=== PATIENT | male | born 1955 | race African-American/Black ===

== ENCOUNTER 2019-10-19 15:41 | Observation (INO) ==
[2019-10-19] MEDS ORDERED: hydrALAZINE 20 MG/1 ML VIAL IV STA (16:25)
[2019-10-19 16:45] LABS: Basophils % 0.2 % (0.0-0.8); Hematocrit 43.3 VOL% (42.0-52.0); Hemoglobin 14.6 GM/DL (14.0-18.0); Immature Granulocytes % 0.4 %; Immature Granulocytes Absolute 0.06 #; Lymphocytes # 0.9 10*3/uL (1.4-4.0); Lymphocytes % 5.3 % (21.2-54.2); Mean Corpuscular HGB Conc 33.7 GM/DL (32-36); Mean Corpuscular Volume 90.4 FL (87-102); Mean Platelet Volume 10.3 FL (9.6-12.0); Monocytes % 5.5 % (1.7-12.7); Neutrophils % 88.6 % (38.7-73.9); Platelet Count 207 T/CUMM (130-400); Red Blood Count 4.79 MC/CUMM (3.8-5.5); Red Cell Distribution Width 12.8 % (9.3-17.3); White Blood Count 17.1 T/CUMM (4-12)
[2019-10-19 17:00] LABS: Albumin 4.3 G/DL (3.4-5.0); Bilirubin,Total 0.9 MG/DL (0.2-1.0); Calcium 9.8 MG/DL (8.5-10.1); Total Protein 8.7 G/DL (6.4-8.3)
[2019-10-19 17:19] LABS: Apearance,Urine Slightly Hazy (Clear); Bilirubin,Urine Negative (Negative); Blood, Urine Moderate mg/dL (Negative); Glucose,Urine (UA) 50 mg/dL (Negative); Ketones,Urine 5 mg/dL (Negative); Mucus,Urine Few /LPF (Occasional); Nitrite,Urine Negative (Negative); Protein,Urine 30 MG/DL; RBC,Urine 27 /HPF (0-4); Squamous Epithelial Cell,Urine Occasional /HPF (0-10); Urine Color Yellow (Yellow); Urine Specific Gravity 1.013 (1.001-1.035); Urine Urobilinogen < 2.0 EU/DL (0.2-1.0); WBC,Urine 6 /HPF (0-6)
[2019-10-19] MEDS ORDERED: ONDANSETRON 4 MG/2 ML VIAL IV STA (17:40)
[2019-10-19] MEDS ORDERED: MORPHINE 4 MG/1 ML VIAL IV STA (17:40)
[2019-10-19] MEDS ORDERED: MORPHINE 4 MG/1 ML VIAL IV PRN (18:21)
[2019-10-19] MEDS ORDERED: hydrALAZINE 20 MG/1 ML VIAL IV PRN (18:21)
[2019-10-19] MEDS ORDERED: GLUCAGON 1 MG VIAL IM PRN (18:21)
[2019-10-19] MEDS ORDERED: DEXTROSE 10% 250 ML BAG IV PRN (18:21)
[2019-10-19] MEDS ORDERED: ONDANSETRON 4 MG/2 ML VIAL IV PRN (18:21)
[2019-10-19] MEDS: PIPERACILLIN/TAZOBACTAM 3,375 MG in SODIUM CHLORIDE 0.9% 100 ML IV SCH (20:59)
[2019-10-19] MEDS: SODIUM CHLORIDE 0.9% 1,000 ML IV SCH (20:59)
[2019-10-19] MEDS: INSULIN REGULAR 100 UNIT/ML SUBCUT SCH (22:02)
[2019-10-20] MEDS: PIPERACILLIN/TAZOBACTAM 3,375 MG in SODIUM CHLORIDE 0.9% 100 ML IV SCH ×3 (04:59→20:57)
[2019-10-20 07:30] LABS: Basophils % 0.2 % (0.0-0.8); Eosinophils % 0.2 % (0.00-10.9); Hematocrit 41.9 VOL% (42.0-52.0); Hemoglobin 14.1 GM/DL (14.0-18.0); Immature Granulocytes % 0.6 %; Immature Granulocytes Absolute 0.11 #; Lymphocytes % 10.4 % (21.2-54.2); Mean Corpuscular HGB Conc 33.7 GM/DL (32-36); Mean Corpuscular Volume 91.3 FL (87-102); Mean Platelet Volume 9.8 FL (9.6-12.0); Monocytes % 8.3 % (1.7-12.7); Neutrophils % 80.3 % (38.7-73.9); Platelet Count 250 T/CUMM (130-400); Red Blood Count 4.59 MC/CUMM (3.8-5.5); Red Cell Distribution Width 12.9 % (9.3-17.3)
[2019-10-20 07:41] LABS: Albumin 3.9 G/DL (3.4-5.0); Bilirubin,Total 1.5 MG/DL (0.2-1.0); Calcium 9.2 MG/DL (8.5-10.1); Osmolality,Calculated 279.5 MOS/KG (273-304)
[2019-10-20] MEDS ORDERED: TAMSULOSIN 0.4 MG CAPSULE PO SCH (09:00)
[2019-10-20] MEDS: INSULIN REGULAR 100 UNIT/ML SUBCUT SCH ×4 (09:21→21:58)
[2019-10-20] MEDS: PANTOPRAZOLE 40 MG TABLET PO SCH (10:55)
[2019-10-20] MEDS ORDERED: ROSUVASTATIN 10 MG TABLET PO SCH (21:00)
[2019-10-20] MEDS ORDERED: MONTELUKAST 10 MG TABLET PO SCH (21:00)
[2019-10-20] MEDS: TAMSULOSIN 0.4 MG CAPSULE PO SCH (21:59)
[2019-10-21] MEDS: PIPERACILLIN/TAZOBACTAM 3,375 MG in SODIUM CHLORIDE 0.9% 100 ML IV SCH ×2 (04:45→12:48)
[2019-10-21 06:21] LABS: Basophils % 0.4 % (0.0-0.8); Eosinophils # 0.2 10*3/uL (0.0-0.87); Eosinophils % 1.6 % (0.00-10.9); Hematocrit 35.4 VOL% (42.0-52.0); Hemoglobin 12.1 GM/DL (14.0-18.0); Immature Granulocytes % 0.6 %; Immature Granulocytes Absolute 0.06 #; Lymphocytes # 1.8 10*3/uL (1.4-4.0); Lymphocytes % 17.8 % (21.2-54.2); Mean Corpuscular HGB Conc 34.2 GM/DL (32-36); Mean Corpuscular Volume 90.5 FL (87-102); Mean Platelet Volume 9.6 FL (9.6-12.0); Monocytes % 8.2 % (1.7-12.7); Neutrophils % 71.4 % (38.7-73.9); Platelet Count 189 T/CUMM (130-400); Red Blood Count 3.91 MC/CUMM (3.8-5.5); White Blood Count 10.2 T/CUMM (4-12)
[2019-10-21 06:33] LABS: Calcium 8.6 MG/DL (8.5-10.1); Osmolality,Calculated 280.3 MOS/KG (273-304)
[2019-10-21] MEDS ORDERED: CETIRIZINE 10 MG TABLET PO SCH (09:00)
[2019-10-21] MEDS ORDERED: amLODIPine 2.5 MG TABLET PO SCH (09:00)
[2019-10-21] MEDS ORDERED: atenoloL 25 MG TABLET PO SCH (09:00)
[2019-10-21] MEDS: INSULIN REGULAR 100 UNIT/ML SUBCUT SCH ×2 (09:16→12:47)
[2019-10-21] MEDS: PANTOPRAZOLE 40 MG TABLET PO SCH (09:17)
[2019-10-21] MEDS: TAMSULOSIN 0.4 MG CAPSULE PO SCH (09:17)
[2019-10-21] MEDS ORDERED: POTASSIUM CHLORIDE 20 MEQ TABLET PO PRN (10:38)
[2019-10-21 11:14] VITALS: BP 131/69
[2019-10-21] MEDS ORDERED: POTASSIUM CHLORIDE 20 MEQ TABLET PO ONE (12:40)
[2019-10-21] MEDS: SODIUM CHLORIDE 0.9% 1,000 ML IV SCH (13:45)
[2019-10-22] MEDS ORDERED: FINASTERIDE 5 MG TABLET PO SCH (09:00)
== END 2019-10-21 15:23 | disposition home health service (06) ==
LOC: N.ED 15:41 → N.EDINP 15:41 → SUATTDRO 18:21 → N.3E 20:15
PROVIDERS: ADMIT Emergency Medicine; ATTEND Internal Medicine